=== PATIENT | female | born 1985 | race Caucasian/White ===

== ENCOUNTER 2020-07-28 01:59 | Emergency (ER) | payer SELFPAY ==
--- NOTE | 2020-07-28 02:30 | EDM.PDOCBH ---
ED HPI GENERAL MEDICAL PROBLEM - General Chief Complaint: Drug or Alcohol Abuse Stated Complaint: OVERDOSE Time Seen by Provider: 07/28/20 02:11 Source of Information: Reports: Patient History Limitations: Reports: No Limitations, Intoxication - History of Present Illness INITIAL COMMENTS - FREE TEXT/NARRATIVE: This is a 35-year-old female. Tonight she has been drinking some and it caused her to be more depressed and she remembered her hanging himself in December. She was the one that found him. And so she took some Klonopin and she thinks maybe 15 of them but she does not strong they are about 2 hours ago so she could go to sleep and forget. Her friends however brought her in for evaluation. She states she is does not want to kill herself she just had a la pse of judgment and just wanted to sleep and forget. She feels overwhelmed because she is trying to sell her house here in buying a house in [place] and it is stressing her out. Any recent illnesses denies any fever chills cough or colds. She does go to Dr. Ross at the [facility]. - Related Data Allergies Allergy/AdvReac Type Severity Reaction Status Date / Time No Known Allergies Allergy Verified 07/28/20 04:42 Home Meds: Home Meds Cephalexin [Keflex] 500 mg PO QID #30 capsule 06/10/15 [Rx] Cetirizine [ZyrTEC] 10 mg PO DAILY 10 Days tablet 06/10/15 [Rx] EPINEPHrine [Epipen] 0.3 mg IM ASDIRECTED PRN #1 pen 06/10/15 [Rx] Ranitidine HCl [Zantac] 150 mg PO BID #20 tablet 06/10/15 [Rx] diphenhydrAMINE [Benadryl] 50 mg PO Q6H #40 cap 06/10/15 [Rx] methylPREDNISolone [Medrol] 4 mg PO ASDIRECTED #1 dospk 06/10/15 [Rx] ED ROS GENERAL - Review of Systems Review Of Systems: See Below Constitutional: Denies: Fever, Chills HEENT: Reports: No Symptoms Respiratory: Denies: Shortness of Breath, Cough Cardiovascular: Reports: No Symptoms Endocrine: Reports: No Symptoms GI/Abdominal: Reports: No Symptoms : Reports: No Symptoms Musculoskeletal: Reports: No Symptoms Skin: Reports: No Symptoms Neurological: Reports: No Symptoms Psychiatric: Reports: Depression. Denies: Suicidal Ideation ED EXAM, BEHAVIORAL HEALTH - Physical Exam Exam: See Below Exam Limited By: No Limitations General Appearance: Alert, WD/WN, Other (The patient is sad and crying) Eye Exam: Bilateral Eye: Normal Inspection Ears: Normal External Exam Nose: Normal Inspection Throat/Mouth: Normal Inspection, Normal Lips, Normal Voice, No Airway Compromise Head: Normocephalic Neck: Supple Respiratory/Chest: No Respiratory Distress, Lungs Clear, Normal Breath Sounds Cardiovascular: Regular Rate, Rhythm, No Murmur, Tachycardia GI/Abdominal: Soft, Non-Tender Back Exam: Normal Inspection, Full Range of Motion Extremities: Normal Inspection, Normal Range of Motion Neurological: Alert Psychiatric: Alert, Depressed Mood, Flat Affect, Tearful. No: Suicidal Thoughts Skin Exam: Warm, Dry COURSE, BEHAVIORAL HEALTH COMP - Course Vital Signs: Last Vital Signs Temp 96.6 F L 07/28/20 02:10 Pulse 115 H 07/28/20 02:10 Resp 16 07/28/20 02:10 BP 133/92 H 07/28/20 02:10 Pulse Ox 93 L 07/28/20 02:10 Orders, Labs, Meds: Laboratory Tests 07/28/20 07/28/20 07/28/20 Range/Units 02:35 02:35 02:35 WBC 7.67 (3.98-10.04) K/mm3 RBC 4.65 (3.98-5.22) M/mm3 Hgb 14.5 (11.2-15.7) gm/dl Hct 42.9 (34.1-44.9) % MCV 92.3 (79.4-94.8) fl MCH 31.2 (25.6-32.2) pg MCHC 33.8 (32.2-35.5) g/dl RDW Std Deviation 42.3 (36.4-46.3) fL Plt Count 341 (182-369) K/mm3 MPV 9.3 L (9.4-12.3) fl Neut % (Auto) 41.1 (34.0-71.1) % Lymph % (Auto) 44.2 (19.3-51.7) % [place] % (Auto) 5.2 (4.7-12.5) % Eos % (Auto) 8.2 H (0.7-5.8) Baso % (Auto) 0.8 (0.1-1.2) % Neut # (Auto) 3.15 (1.56-6.13) K/mm3 Lymph # (Auto) 3.39 (1.18-3.74) K/mm3 [place] # (Auto) 0.40 H (0.24-0.36) K/mm3 Eos # (Auto) 0.63 H (0.04-0.36) K/mm3 Baso # (Auto) 0.06 (0.01-0.08) K/mm3 Sodium 139 (136-145) mEq/L Potassium 3.8 (3.5-5.1) mEq/L Chloride 104 (98-107) mEq/L Carbon Dioxide 26 (21-32) mEq/L Anion Gap 12.8 (5-15) BUN 14 (7-18) mg/dL Creatinine 0.8 (0.55-1.02) mg/dL Est Cr Clr Drug Dosing 101.60 mL/min Estimated GFR (MDRD) > 60 (>60) mL/min BUN/Creatinine Ratio 17.5 (14-18) Glucose 91 (74-106) mg/dL Calcium 8.5 (8.5-10.1) mg/dL Total Bilirubin 0.2 (0.2-1.0) mg/dL AST 26 (15-37) U/L ALT 33 (14-59) U/L Alkaline Phosphatase 46 (46-116) U/L Total Protein 7.9 (6.4-8.2) g/dl Albumin 4.0 (3.4-5.0) g/dl Globulin 3.9 gm/dL Albumin/Globulin Ratio 1.0 (1-2) HCG, Qual (NEGATIVE) Urine Color (Yellow) Urine Appearance (Clear) Urine pH (5.0-8.0) Ur Specific Lambert (1.005-1.030) Urine Protein (Negative) Urine Glucose (UA) (Negative) Urine Ketones (Negative) Urine Occult Blood (Negative) Urine Nitrite (Negative) Urine Bilirubin (Negative) Urine Urobilinogen (0.2-1.0) Ur Leukocyte Esterase (Negative) Urine RBC (0-5) /hpf Urine WBC (0-5) /hpf Ur Epithelial Cells (0-5) /hpf Urine Bacteria (FEW) /hpf Urine Mucus (FEW) /hpf Salicylates 3.4 (2.8-20) mg/dL Urine Opiates Screen (EZCTST=743) Ur Buprenorphine Scrn (CUTOFF=10) Ur Oxycodone Screen (YHZ3CY=698) Urine Methadone Screen (YITFKY=287) Ur Propoxyphene Screen (MGWUON=218) Acetaminophen 0 L (10-30) ug/mL Ur Barbiturates Screen (DUFEJV=681) Ur Tricyclics Screen (DWAJGN=659) Ur Phencyclidine Scrn (CUTOFF=25) Ur Amphetamine Screen (UZKRWK=307) U Methamphetamines Scrn (ULSXHZ=819) U Benzodiazepines Scrn (ZPERAT=558) U Cocaine Metab Screen (KLRXRI=705) U Marijuana (THC) Screen (CUTOFF=50) Ethyl Alcohol 0.21 (0.00) gm% 07/28/20 07/28/20 07/28/20 Range/Units 02:35 04:05 04:05 WBC (3.98-10.04) K/mm3 RBC (3.98-5.22) M/mm3 Hgb (11.2-15.7) gm/dl Hct (34.1-44.9) % MCV (79.4-94.8) fl MCH (25.6-32.2) pg MCHC (32.2-35.5) g/dl RDW Std Deviation (36.4-46.3) fL Plt Count (182-369) K/mm3 MPV (9.4-12.3) fl Neut % (Auto) (34.0-71.1) % Lymph % (Auto) (19.3-51.7) % [place] % (Auto) (4.7-12.5) % Eos % (Auto) (0.7-5.8) Baso % (Auto) (0.1-1.2) % Neut # (Auto) (1.56-6.13) K/mm3 Lymph # (Auto) (1.18-3.74) K/mm3 [place] # (Auto) (0.24-0.36) K/mm3 Eos # (Auto) (0.04-0.36) K/mm3 Baso # (Auto) (0.01-0.08) K/mm3 Sodium (136-145) mEq/L Potassium (3.5-5.1) mEq/L Chloride (98-107) mEq/L Carbon Dioxide (21-32) mEq/L Anion Gap (5-15) BUN (7-18) mg/dL Creatinine (0.55-1.02) mg/dL Est Cr Clr Drug Dosing mL/min Estimated GFR (MDRD) (>60) mL/min BUN/Creatinine Ratio (14-18) Glucose (74-106) mg/dL Calcium (8.5-10.1) mg/dL Total Bilirubin (0.2-1.0) mg/dL AST (15-37) U/L ALT (14-59) U/L Alkaline Phosphatase (46-116) U/L Total Protein (6.4-8.2) g/dl Albumin (3.4-5.0) g/dl Globulin gm/dL Albumin/Globulin Ratio (1-2) HCG, Qual Negative (NEGATIVE) Urine Color Yellow (Yellow) Urine Appearance Clear (Clear) Urine pH 6.0 (5.0-8.0) Ur Specific Lambert 1.015 (1.005-1.030) Urine Protein Negative (Negative) Urine Glucose (UA) Negative (Negative) Urine Ketones Negative (Negative) Urine Occult Blood 2+ H (Negative) Urine Nitrite Negative (Negative) Urine Bilirubin Negative (Negative) Urine Urobilinogen 0.2 (0.2-1.0) Ur Leukocyte Esterase Negative (Negative) Urine RBC 0-5 (0-5) /hpf Urine WBC 0-5 (0-5) /hpf Ur Epithelial Cells 0-5 (0-5) /hpf Urine Bacteria Not seen (FEW) /hpf Urine Mucus Few (FEW) /hpf Salicylates (2.8-20) mg/dL Urine Opiates Screen Negative (BAMNWI=454) Ur Buprenorphine Scrn Negative (CUTOFF=10) Ur Oxycodone Screen Negative (STV9WV=719) Urine Methadone Screen Negative (HLEEDU=924) Ur Propoxyphene Screen Negative (RKIETM=144) Acetaminophen (10-30) ug/mL Ur Barbiturates Screen Negative (PBFILD=515) Ur Tricyclics Screen Negative (DYAWCK=578) Ur Phencyclidine Scrn Negative (CUTOFF=25) Ur Amphetamine Screen Presumptive positive H (WJHVCQ=661) U Methamphetamines Scrn Negative (VPVVUG=374) U Benzodiazepines Scrn Negative (PJAQUG=459) U Cocaine Metab Screen Negative (DPSQHR=703) U Marijuana (THC) Screen Presumptive positive H (CUTOFF=50) Ethyl Alcohol (0.00) gm% Discharge vs Psych Eval/Treatment:: 07/28/20 05:03 Spoke with the [facility] crisis person financial services professional. She is going to try to get someone from [place] to come and evaluate the patient but she does not promise anything. Regular try to get a crisis bed for this patient to stay in for a day or 2 until she can count to sort out her thoughts and get some additional counseling. Please note that even though she said she took Klonopin there are no benzodiazepines in her drug screen. So I am not certain what she actually took. 07/28/20 05:58 The crisis people made a plan for the patient while talking to the patient. She is going to be with her boyfriend over the weekend and he is going to watch her to make sure she stays safe. On Thursday she is to contact Dr. Ross for further counseling and evaluation. Both the patient and her boyfriend are good with this and the boyfriend is willing to take responsibility for her over the weekend. Departure - Departure Time of Disposition: 05:59 Disposition: Home, Self-Care 01 Condition: Fair Clinical Impression: Acute alcohol intoxication Qualifiers: Complication of substance-induced condition: uncomplicated Qualified Code(s): F10.920 - Alcohol use, unspecified with intoxication, uncomplicated Depression Qualifiers: Depression Type: unspecified Qualified Code(s): F32.9 - Major depressive disorder, single episode, unspecified Accidental drug ingestion Qualifiers: Encounter type: initial encounter Qualified Code(s): T50.901A - Poisoning by unspecified drugs, medicaments and biological substances, accidental (unintenti onal), initial encounter - Discharge Information *PRESCRIPTION DRUG MONITORING PROGRAM REVIEWED*: Not Applicable *COPY OF PRESCRIPTION DRUG MONITORING REPORT IN PATIENT ELIZABET: Not Applicable Instructions: Alcohol Intoxication, [id number], Major Depressive Disorder, Adult, [id number] Referrals: Shabnam Ross MD [Ordering Only Provider] - Forms: ED Department Discharge Additional Instructions: Continue with your normal dose of medications, perhaps you need to let your boyfriend hang onto the medications over the weekend and gave you the medications you need when you need them, you need to stay around your boyfriend and he needs to stay around you over the entire weekend to make sure you stay safe, follow-up with Dr. Ross on Thursday by either calling or going to the clinic for reevaluation and further treatment, return to the ER if your symptoms worsen over the weekend Sepsis Event Note (ED) - Evaluation Sepsis Screening Result: No Definite Risk - Focused Exam Vital Signs: Vital Signs Temp Pulse Resp BP Pulse Ox 07/28/20 02:10 96.6 F L 115 H 16 133/92 H 93 L
[2020-07-28 03:03] LABS: ACETAMINOPHEN 0 ug/mL (10-30)
[2020-07-28 06:20] VITALS: BP 110/66; PULSE 91
== END 2020-07-28 06:09 | disposition home or self-care (01) ==
LOC: JD.ED 01:59
DX: T42.4X1A Poisoning by benzodiazepines, accidental (unintentional), initial encounter (principal); F32.9 Major depressive disorder, single episode, unspecified; F10.120 Alcohol abuse with intoxication, uncomplicated
CPT/HCPCS: 36415; 80053; 80306; 80307; 81001; 84703; 85025; 99283; 99284

== ENCOUNTER 2024-09-25 17:04 | Emergency (ER) | payer SELFPAY ==
[2024-09-25 18:12] LABS: BASOPHILS ABSOLUTE AUTO 0.1 K/mm3 (0.0-0.2); BASOPHILS PERCENT AUTO 0.7 % (0.0-1.0); EOSINOPHILS PERCENT AUTO 9.5 % (0.0-6.0); HEMATOCRIT 43.4 % (37.0-47.0); HEMOGLOBIN 14.6 gm/dl (12.0-16.0); IMMATURE GRAN ABSOLUTE AUTO 0.04 K/mm3 (0.00-0.05); IMMATURE GRAN PERCENT AUTO 0.4 % (0.0-0.4); LYMPHOCYTES ABSOLUTE AUTO 3.7 K/mm3 (1.0-4.8); LYMPHOCYTES PERCENT AUTO 35.3 % (24.0-44.0); MEAN CORPUSCULAR HEMOGLOBIN 30.1 pg (28.0-32.0); MEAN CORPUSCULAR HGB CONC 33.6 g/dl (32.0-36.0); MEAN CORPUSCULAR VOLUME 89.5 fl (83.0-99.0); MEAN PLATELET VOLUME 9.6 fl (9.4-12.3); MONOCYTES ABSOLUTE AUTO 0.5 K/mm3 (0.0-0.8); NEUTROPHILS ABSOLUTE AUTO 5.1 K/mm3 (1.8-7.7); NEUTROPHILS PERCENT AUTO 49.1 % (41.0-71.0); PLATELET COUNT,PLT 328 K/mm3 (150-400); RED BLOOD CELL COUNT 4.85 M/mm3 (4.10-5.30); WHITE BLOOD CELL COUNT,WBC 10.43 K/mm3 (3.9-11.3)
[2024-09-25 18:36] LABS: A/G RATIO 1.1 (1-2); ALBUMIN 3.6 g/dl (3.4-5.0); BILIRUBIN TOTAL 0.3 mg/dL (0.2-1.0); BUN/CREATININE RATIO 8.9 (14-18); CALCIUM 10.3 mg/dL (8.5-10.1); CREATININE 0.9 mg/dL (0.55-1.02); EST CRCL DRUG DOSING (CG) 83.82 mL/min; TSH 0.741 uIU/mL (0.358-3.74)
[2024-09-25] MEDS: Nicotine 21 MG/24 Hr Patch TRDERM ONE (19:28)
[2024-09-25] MEDS: Sodium Chloride 0.9% 10 ML Syringe FLUSH PRN (19:36)
[2024-09-26 02:46] LABS: BARBITURATE SCREEN,URINE NEGATIVE (CUTOFF=200); BENZODIAZEPINES SCREEN,URINE PRESUMPTIVE POSITIVE (CUTOFF=150); BUPRENORPHINE SCREEN,URINE NEGATIVE (CUTOFF=10); METHADONE SCREEN, URINE NEGATIVE (CUTOFF=200); METHAMPHETAMINES SCREEN, URINE PRESUMPTIVE POSITIVE (CUTOFF=500); OXYCODONE SCREEN,URINE NEGATIVE (CUT0FF=100); THC SCREEN,URINE 20 NG/ML NEGATIVE (CUTOFF=50)
[2024-09-26 02:49] LABS: AMPHETAMINES SCREEN, URINE PRESUMPTIVE POSITIVE (CUTOFF=500)
[2024-09-26 07:21] VITALS: BP 121/81; PULSE 74
== END 2024-09-26 07:00 ==
LOC: JD.ED 17:04
DX: T42.4X2A Poisoning by benzodiazepines, intentional self-harm, initial encounter (principal); Z91.041 Radiographic dye allergy status; Z91.011 Allergy to milk products; Z91.030 Bee allergy status
CPT/HCPCS: 36415; 80053; 80143; 80179; 80306; 80307; 84443; 84702; 85025; 87428; 93005; 99285; A9270; J3490; 93010